=== PATIENT | male | born 1950 | race Caucasian/White ===

== ENCOUNTER 2017-05-02 08:38 | Day surgery (SDC) | payer MEDICARE, OTHER ==
[2017-05-02] MEDS ORDERED: Midazolam 1 MG/ML 2 ML SDV ONE (09:19)
[2017-05-02] MEDS ORDERED: fentaNYL 100 MCG/2 ML SDV ONE (09:19)
[2017-05-02] MEDS ORDERED: Propofol 200 MG/20 ML SDV ONE (09:19)
[2017-05-02] MEDS ORDERED: Lactated Ringers 1,000 ML IV SCH (09:45)
[2017-05-02 11:16] VITALS: BP 98/56
--- NOTE | 2017-05-02 14:59 | OR ---
DATE OF PROCEDURE: 05/02/2017 PREOPERATIVE DIAGNOSIS: Colon cancer screening. POSTOPERATIVE DIAGNOSIS: Diverticulosis. PROCEDURE: Colonoscopy to the cecum. ANESTHESIA: IV anesthesia with monitored anesthesia care. INDICATION: This is a 66-year-old white male is referred for a colonoscopy for colon cancer screening. He tells me his last colonoscopic exam was done 12 years ago. I counseled him for the procedure including risks and alternatives, and he gave his informed consent to proceed. DESCRIPTION OF PROCEDURE: The patient was placed in the left lateral decubitus position. IV anesthesia was administered by the Anesthesia Service. Time-out was held. A rectal exam was performed, which was unremarkable. The flexible video Olympus colonoscope was introduced through his anus, up his rectum, and out his colon all way to the cecum. En route, we saw several left-sided diverticula. There was no bleeding or inflammation associated with them. Once the cecum was reached, the scope was slowly withdrawn examining the mucosa throughout. No additional mucosal abnormalities were noted. The scope was retroflexed in the rectum with the distal rectum appearing unremarkable. The scope was straightened and removed. He tolerated the procedure well. Emil King MD /[id number]
== END 2017-05-02 11:34 | disposition home or self-care (01) ==
LOC: JP.SDS 08:38
PROVIDERS: ATTEND Surgery
DX: Z12.11 Encounter for screening for malignant neoplasm of colon (principal); K57.30 Diverticulosis of large intestine without perforation or abscess without bleeding; Z88.8 Allergy status to other drugs, medicaments and biological substances
CPT/HCPCS: G0121; J2250; J2704; J3010; J7120

== ENCOUNTER 2021-12-12 10:34 | Emergency (ER) | payer MEDICARE, OTHER ==
[2021-12-12 11:10] VITALS: BP 117/78; PULSE 75
[2021-12-12] MEDS ORDERED: Sodium Chloride 0.9% 10 ML Syringe FLUSH PRN (11:10)
[2021-12-12] MEDS ORDERED: Albuterol 8 GM Inhaler INH ONE (11:10)
[2021-12-12] MEDS ORDERED: predniSONE 20 MG Tab PO ONE (11:15)
== END 2021-12-12 14:57 | disposition home or self-care (01) ==
LOC: JP.ED 10:34
DX: U07.1 COVID-19 (principal); J44.1 Chronic obstructive pulmonary disease with (acute) exacerbation; Z88.8 Allergy status to other drugs, medicaments and biological substances; Z79.82 Long term (current) use of aspirin; Z87.891 Personal history of nicotine dependence
CPT/HCPCS: 36415; 71045; 71045-26; 80053; 85025; 99285-25

== ENCOUNTER 2022-08-19 10:22 | Inpatient (IN) | payer MEDICARE ==
[2022-08-19] MEDS ORDERED: Ketorolac 30 MG/ML SDV IM ONE (12:11)
[2022-08-19] MEDS ORDERED: Sodium Chloride 0.9% 10 ML Syringe FLUSH PRN ×2 (12:49→14:21)
[2022-08-19] MEDS ORDERED: Ampicillin/Sulbactam Na 1.5 GM in Sodium Chloride 0.9% 50 ML IV SCH (13:00)
[2022-08-19] MEDS ORDERED: HYDROmorphone 0.5 MG/0.5 ML Syringe IVPUSH PRN (14:21)
[2022-08-19] MEDS ORDERED: Ondansetron 4 MG/2 ML SDV IV PRN (14:21)
[2022-08-19] MEDS: Acetaminophen 325 MG Tab PO PRN (17:16)
[2022-08-19] MEDS: Enoxaparin 40 MG/0.4 ML Syringe SUBCUT SCH (17:17)
[2022-08-19] MEDS: Ampicillin/Sulbactam Na 1.5 GM in Sodium Chloride 0.9% 50 ML IV SCH ×2 (17:18→23:31)
[2022-08-19] MEDS: oxyCODONE 5 MG Tab PO PRN (20:28)
[2022-08-19] MEDS: Sodium Chloride 0.9% 1,000 ML IV SCH (22:14)
[2022-08-20] MEDS: Acetaminophen 325 MG Tab PO PRN (04:38)
[2022-08-20] MEDS: Sodium Chloride 0.9% 1,000 ML IV SCH (05:55)
[2022-08-20] MEDS: Ampicillin/Sulbactam Na 1.5 GM in Sodium Chloride 0.9% 50 ML IV SCH ×3 (05:55→17:16)
[2022-08-20] MEDS ORDERED: Niacin 250 MG Tab.ER PO SCH ×2 (09:00→21:00)
[2022-08-20] MEDS ORDERED: Aspirin 81 MG Tab.Chew PO SCH ×2 (09:00→21:00)
[2022-08-20] MEDS ORDERED: Fish Oil/Omega-3 Fatty Acids 1 Gm Cap PO SCH (09:00)
[2022-08-20] MEDS: oxyCODONE 5 MG Tab PO PRN ×2 (09:33→16:20)
[2022-08-20] MEDS ORDERED: Sodium Chloride 0.9% 1,000 ML IV SCH (10:15)
[2022-08-20] MEDS: Docusate Sodium 100 MG Cap PO SCH ×2 (12:37→21:13)
[2022-08-20] MEDS: Enoxaparin 40 MG/0.4 ML Syringe SUBCUT SCH (16:20)
[2022-08-21] MEDS: Ampicillin/Sulbactam Na 1.5 GM in Sodium Chloride 0.9% 50 ML IV SCH (00:08)
[2022-08-21 00:10] VITALS: BP 111/81; PULSE 75
[2022-08-21] MEDS ORDERED: Ampicillin/Sulbactam Na 1.5 GM in Sodium Chloride 0.9% 50 ML IV ONE ×2 (06:00→11:30)
[2022-08-21] MEDS ORDERED: Sodium Chloride 0.9% 1,000 ML IV ONE (07:25)
[2022-08-21] MEDS ORDERED: Bupivacaine 0.5% 50 ML MDV ONE (07:59)
[2022-08-21] MEDS ORDERED: Lidocaine 1% with EPINEPHrine 1:100,000 50 ML MDV ONE (07:59)
[2022-08-21] MEDS ORDERED: hydrOXYzine HCL 100 MG/2 ML SDV IM ONE (08:15)
[2022-08-21] MEDS ORDERED: Dexamethasone 4 MG/ML SDV ONE (08:47)
[2022-08-21] MEDS ORDERED: Propofol 200 MG/20 ML SDV ONE (08:47)
[2022-08-21] MEDS ORDERED: Rocuronium 50 MG/5 ML Vial ONE (08:47)
[2022-08-21] MEDS ORDERED: Ondansetron 4 MG/2 ML SDV ONE (08:47)
[2022-08-21] MEDS ORDERED: Glycopyrrolate 0.2 MG/ML 5 ML MDV ONE (08:47)
[2022-08-21] MEDS ORDERED: Succinylcholine 200 MG/10 ML MDV ONE (08:47)
[2022-08-21] MEDS ORDERED: Neostigmine Methylsulfate 1 MG/ML 5 ML Syringe ONE (08:47)
[2022-08-21] MEDS ORDERED: fentaNYL 100 MCG/2 ML SDV ONE ×2 (08:49)
[2022-08-21] MEDS ORDERED: Pantoprazole 40 MG Vial ONE (09:00)
[2022-08-21] MEDS ORDERED: HYDROmorphone/Normal Saline 6 MG/30 ML PCA Vial ONE ×2 (09:00→10:30)
[2022-08-21] MEDS ORDERED: hydrOXYzine HCL 100 MG/2 ML SDV ONE ×2 (09:00→13:20)
[2022-08-21] MEDS ORDERED: Lidocaine 1% 4 ML ONE (09:50)
[2022-08-21] MEDS ORDERED: Lidocaine 2% Jelly 10 ML Urojet ONE (09:53)
[2022-08-21] MEDS ORDERED: fentaNYL 250 MCG/5 ML SDV ONE (10:25)
[2022-08-21] MEDS ORDERED: Labetalol 20 MG/4 ML Syringe ONE (10:38)
[2022-08-21] MEDS ORDERED: Meropenem 500 MG SDV ONE ×2 (10:39→10:54)
[2022-08-21] MEDS ORDERED: Ketamine 20 MG in Sodium Chloride 0.9% 19.8 ML IV SCH (11:00)
[2022-08-21] MEDS ORDERED: Ropivacaine 38 ML, dexAMETHasone 8 MG, EPINEPHrine 0.4 MG, Sodium Chloride 0.9% 39.6 ML NERVRT SCH ×4 (11:00)
[2022-08-21] MEDS ORDERED: Ketamine 500 MG/5 ML MDV IV SCH (11:00)
[2022-08-21] MEDS ORDERED: Lactated Ringers 1,000 ML ONE (11:09)
[2022-08-21] MEDS ORDERED: Sugammadex Sodium 200 MG/2 ML VIAL ONE (11:50)
[2022-08-21] MEDS ORDERED: Dextrose 5%-Lactated Ringers 1,000 ML IV ONE (17:45)
[2022-08-21] MEDS ORDERED: Ampicillin/Sulbactam Na 3 GM in Sodium Chloride 0.9% 100 ML IV ONE (19:43)
[2022-08-22] MEDS ORDERED: Ondansetron 4 MG/2 ML SDV IVPUSH ONE ×3 (01:44→07:25)
[2022-08-22] MEDS ORDERED: oxyCODONE 5 MG Tab PO ONE (01:51)
[2022-08-22] MEDS ORDERED: Ampicillin/Sulbactam Na 3 GM in Sodium Chloride 0.9% 100 ML IV ONE ×4 (02:37→20:50)
[2022-08-22] MEDS ORDERED: Ampicillin/Sulbactam Na 1.5 GM in Sodium Chloride 0.9% 50 ML IV ONE ×3 (08:45→20:50)
[2022-08-22] MEDS ORDERED: Tamsulosin 0.4 MG Cap.ER ONE ×2 (09:00)
[2022-08-22] MEDS ORDERED: Cyclobenzaprine 10 MG Tab PO ONE ×2 (09:00→17:00)
[2022-08-22] MEDS ORDERED: Furosemide 20 MG/2 ML VIAL ONE (09:00)
[2022-08-22] MEDS ORDERED: Cyclobenzaprine 10 MG Tab ONE (09:12)
[2022-08-22] MEDS ORDERED: Azithromycin 125 MG in Sodium Chloride 0.9% 100 ML IV ONE ×2 (09:45→21:45)
[2022-08-22] MEDS ORDERED: Pantoprazole 40 MG Vial ONE (13:49)
[2022-08-22] MEDS ORDERED: Pantoprazole 40 MG Vial IV ONE (14:15)
[2022-08-22] MEDS ORDERED: Potassium Phos in 0.9 % NaCl 250 ML IV ONE ×4 (14:51→23:00)
[2022-08-22] MEDS ORDERED: HYDROmorphone/Normal Saline 6 MG/30 ML PCA Vial IV ONE (18:10)
[2022-08-22] MEDS ORDERED: hydrOXYzine HCL 100 MG/2 ML SDV IM ONE (20:40)
[2022-08-22] MEDS ORDERED: hydrOXYzine HCL 100 MG/2 ML SDV ONE (20:44)
[2022-08-22] MEDS ORDERED: Docusate Sodium 100 MG Cap ONE (21:16)
[2022-08-23] MEDS ORDERED: Cyclobenzaprine 10 MG Tab PO ONE (01:50)
[2022-08-23] MEDS ORDERED: Ampicillin/Sulbactam Na 1.5 GM in Sodium Chloride 0.9% 50 ML IV ONE (02:50)
[2022-08-23] MEDS ORDERED: Ampicillin/Sulbactam Na 3 GM in Sodium Chloride 0.9% 100 ML IV ONE ×4 (02:50→22:00)
[2022-08-23] MEDS ORDERED: Bupivacaine 0.5% 50 ML MDV ONE (06:44)
[2022-08-23] MEDS ORDERED: Meropenem 500 MG SDV ONE (06:44)
[2022-08-23] MEDS ORDERED: Lidocaine 1% with EPINEPHrine 1:100,000 50 ML MDV ONE (06:44)
[2022-08-23] MEDS ORDERED: Propofol 200 MG/20 ML SDV ONE (06:49)
[2022-08-23] MEDS ORDERED: Ropivacaine 38 ML, dexAMETHasone 8 MG, EPINEPHrine 0.4 MG, Sodium Chloride 0.9% 39.6 ML NERVRT SCH ×4 (07:00)
[2022-08-23] MEDS ORDERED: Furosemide 20 MG/2 ML VIAL ONE ×2 (07:12→09:00)
[2022-08-23] MEDS ORDERED: Sodium Chloride 0.9% 500 ML ONE (07:44)
[2022-08-23] MEDS ORDERED: Ketorolac 30 MG/ML SDV ONE (07:46)
[2022-08-23] MEDS ORDERED: HYDROmorphone/Normal Saline 6 MG/30 ML PCA Vial IV ONE (07:50)
[2022-08-23] MEDS ORDERED: Tamsulosin 0.4 MG Cap.ER ONE ×2 (09:00)
[2022-08-23] MEDS ORDERED: Pantoprazole 40 MG Vial ONE (09:00)
[2022-08-23] MEDS ORDERED: Azithromycin 125 MG in Sodium Chloride 0.9% 100 ML IV ONE (09:00)
[2022-08-23] MEDS ORDERED: Cyclobenzaprine 10 MG Tab ONE ×3 (09:00)
[2022-08-23] MEDS ORDERED: Ibuprofen 600 MG Tab ONE (09:00)
[2022-08-23] MEDS ORDERED: Potassium Phos in 0.9 % NaCl 250 ML IV ONE ×3 (11:45→17:45)
[2022-08-23] MEDS ORDERED: Magnesium Sulfate/Water 50 ML IV ONE ×2 (16:00→22:00)
[2022-08-24] MEDS ORDERED: Magnesium Sulfate/Water 50 ML IV ONE ×4 (04:00→22:00)
[2022-08-24] MEDS ORDERED: Ampicillin/Sulbactam Na 3 GM in Sodium Chloride 0.9% 100 ML IV ONE ×4 (04:00→22:00)
[2022-08-24] MEDS ORDERED: Ibuprofen 600 MG Tab ONE ×3 (09:00)
[2022-08-24] MEDS ORDERED: Tamsulosin 0.4 MG Cap.ER ONE ×2 (09:00)
[2022-08-24] MEDS ORDERED: Furosemide 20 MG/2 ML VIAL ONE (09:00)
[2022-08-24] MEDS ORDERED: Cyclobenzaprine 10 MG Tab ONE ×3 (09:00)
[2022-08-24] MEDS ORDERED: Pantoprazole 40 MG Vial ONE (09:00)
[2022-08-24] MEDS ORDERED: Potassium Phos in 0.9 % NaCl 250 ML IV ONE ×3 (09:18→15:46)
[2022-08-24] MEDS ORDERED: Dextrose 5%-Lactated Ringers 1,000 ML IV ONE (10:02)
[2022-08-24] MEDS ORDERED: Ropivacaine 38 ML, dexAMETHasone 8 MG, EPINEPHrine 0.4 MG, Sodium Chloride 0.9% 39.6 ML NERVRT SCH ×4 (11:00)
[2022-08-24] MEDS ORDERED: HYDROmorphone 2 MG Tab PO ONE ×2 (12:30→18:30)
[2022-08-24] MEDS ORDERED: HYDROmorphone 2 MG Tab ONE ×2 (12:44→18:39)
[2022-08-25] MEDS ORDERED: HYDROmorphone 2 MG Tab ONE (03:05)
[2022-08-25] MEDS ORDERED: HYDROmorphone 2 MG Tab PO ONE (03:07)
[2022-08-25] MEDS ORDERED: Ampicillin/Sulbactam Na 3 GM in Sodium Chloride 0.9% 100 ML IV ONE (04:23)
[2022-08-25] MEDS ORDERED: Magnesium Sulfate/Water 50 ML IV ONE (04:23)
[2022-08-25] MEDS ORDERED: Tamsulosin 0.4 MG Cap.ER ONE (09:00)
[2022-08-25] MEDS ORDERED: Ibuprofen 600 MG Tab ONE ×2 (09:00)
[2022-09-15 08:52] LABS: ESTIMATED GFR 90 mL/min (>60)
[2022-09-15 17:19] LABS: ESTIMATED GFR 79 mL/min (>60)
[2022-09-18 23:13] LABS: ESTIMATED GFR 79 mL/min (>60)
[2022-09-19 13:59] LABS: ESTIMATED GFR 79 mL/min (>60)
[2022-09-26 13:49] LABS: ESTIMATED GFR 93 mL/min (>60)
== END 2022-08-25 11:00 | disposition home or self-care (01) | DRG 329 ==
LOC: JP.ED 10:22 → JP.MS 12:50 → JP.ZCENSUS 08-21 11:57
PROVIDERS: ADMIT Hospitalist; ATTEND Surgery
PROC: 0DBP0ZZ Excision of Rectum, Open Approach (ICD-10-PCS; principal; 2022-08-21)
PROC: 0DBN0ZZ Excision of Sigmoid Colon, Open Approach (ICD-10-PCS; 2022-08-21)
PROC: 0W9G0ZZ Drainage of Peritoneal Cavity, Open Approach (ICD-10-PCS; 2022-08-21)
PROC: 0WQF0ZZ Repair Abdominal Wall, Open Approach (ICD-10-PCS; 2022-08-23)
DX: C18.7 Malignant neoplasm of sigmoid colon (principal); K65.1 Peritoneal abscess; K57.20 Diverticulitis of large intestine with perforation and abscess without bleeding; K42.0 Umbilical hernia with obstruction, without gangrene; H54.7 Unspecified visual loss; J44.9 Chronic obstructive pulmonary disease, unspecified; N40.0 Benign prostatic hyperplasia without lower urinary tract symptoms; Z20.822 Contact with and (suspected) exposure to COVID-19; M54.9 Dorsalgia, unspecified; G89.29 Other chronic pain; Z86.16 Personal history of COVID-19; Z88.8 Allergy status to other drugs, medicaments and biological substances; Z79.82 Long term (current) use of aspirin; Z87.891 Personal history of nicotine dependence; Z90.49 Acquired absence of other specified parts of digestive tract; Z79.899 Other long term (current) drug therapy
CPT/HCPCS: 36415; 51702; 74176; 80048; 80053; 82378; 83735; 83880; 84100; 84145; 84484; 85025; 85027; 86140; 87070; 87075; 87077; 87186; 87205; 88302; 88307; 88309; 88341; 94762; 99284; A9270-GY; C9113; J0131; J0171; J0295; J0330; J0456; J1100; J1170; J1650; J1885; J1940; J2185; J2405; J2704; J2710; J2795; J3010; J3410; J3475; J3490; J7030; J7040; J7120; J7121; U0002

== ENCOUNTER 2022-10-09 07:36 | Day surgery (SDC) | payer MEDICARE ==
[~2022-10-09 07:36] MED LIST: Bupivacaine 0.5% 50 ML MDV ONE; Lidocaine 1% with EPINEPHrine 1:100,000 50 ML MDV ONE; Midazolam 1 MG/ML 2 ML SDV ONE; Propofol 200 MG/20 ML SDV ONE; fentaNYL 100 MCG/2 ML SDV ONE
[2022-10-09] MEDS ORDERED: Dextrose 5%-Lactated Ringers 1,000 ML IV SCH (09:00)
[2022-10-09] MEDS ORDERED: ceFAZolin 2 GM in Sodium Chloride 0.9% 50 ML IV ONE (09:15)
[2022-10-09] MEDS ORDERED: ceFAZolin 2 GM in Premix Bag 1 BAG IV ONE (09:15)
[2022-10-09] MEDS ORDERED: Propofol 200 MG/20 ML SDV ONE (09:18)
[2022-10-09 11:13] VITALS: BP 125/68; PULSE 52
== END 2022-10-09 11:15 | disposition home or self-care (01) ==
LOC: JP.SDS 07:36
PROVIDERS: ATTEND Surgery
DX: Z45.2 Encounter for adjustment and management of vascular access device (principal); E78.5 Hyperlipidemia, unspecified; J44.9 Chronic obstructive pulmonary disease, unspecified; Z79.899 Other long term (current) drug therapy; Z88.8 Allergy status to other drugs, medicaments and biological substances
CPT/HCPCS: 36561; 77001; C1788; J0690; J1642; J2250; J2704; J3010; J3490; J7121

== ENCOUNTER 2023-03-16 06:50 | Day surgery (SDC) | payer MEDICARE ==
[2023-03-16] MEDS ORDERED: Propofol 200 MG/20 ML SDV ONE (07:28)
[2023-03-16] MEDS ORDERED: Midazolam 1 MG/ML 2 ML SDV ONE (07:28)
[2023-03-16] MEDS ORDERED: fentaNYL 50 MCG/ML SDV ONE (07:28)
[2023-03-16] MEDS ORDERED: Dextrose 5%-Lactated Ringers 1,000 ML IV SCH (07:30)
[2023-03-16 10:09] VITALS: BP 131/89; PULSE 59
== END 2023-03-16 10:55 | disposition home or self-care (01) ==
LOC: JP.SDS 06:50
PROVIDERS: ATTEND Surgery
DX: K91.89 Other postprocedural complications and disorders of digestive system (principal); K56.699 Other intestinal obstruction unspecified as to partial versus complete obstruction; K57.20 Diverticulitis of large intestine with perforation and abscess without bleeding; K64.9 Unspecified hemorrhoids; Z98.0 Intestinal bypass and anastomosis status; Z85.038 Personal history of other malignant neoplasm of large intestine; Z90.49 Acquired absence of other specified parts of digestive tract; Z53.09 Procedure and treatment not carried out because of other contraindication
CPT/HCPCS: 45386; J1642; J2250; J2704; J3010; J7121

== ENCOUNTER 2023-05-20 18:17 | Inpatient (IN) | payer MEDICARE ==
[2023-05-20] MEDS ORDERED: Ondansetron 4 MG/2 ML SDV IVPUSH ONE (18:35)
[2023-05-20] MEDS ORDERED: HYDROmorphone 0.5 MG/0.5 ML Syringe IVPUSH ONE ×2 (18:35→19:10)
[2023-05-20 18:51] LABS: BASOPHILS ABSOLUTE AUTO 0.04 K/uL (0.00-0.10); BASOPHILS PERCENT AUTO 0.4 % (0.1-1.3); EOSINOPHILS ABSOLUTE AUTO 0.92 K/uL (0.00-0.40); EOSINOPHILS PERCENT AUTO 9.3 % (0.0-5.4); HEMATOCRIT 38.5 % (38.4-49.7); HEMOGLOBIN 13.5 g/dL (12.9-16.9); IMMATURE GRAN PERCENT AUTO 0.2 % (0.0-0.7); LYMPHOCYTES ABSOLUTE AUTO 2.45 K/uL (0.8-3.3); LYMPHOCYTES PERCENT AUTO 24.8 % (11.4-47.7); MEAN CORPUSCULAR HEMOGLOBIN 34.9 pg (31.6-35.5); MEAN CORPUSCULAR HGB CONC 35.1 g/dL (31.6-35.5); MEAN CORPUSCULAR VOLUME 99.5 fL (81.4-99.0); MONOCYTES ABSOLUTE AUTO 0.81 K/uL (0.20-0.90); MONOCYTES PERCENT AUTO 8.2 % (3.3-12.6); NEUTROPHILS ABSOLUTE AUTO 5.63 K/uL (1.0-7.6); NEUTROPHILS PERCENT AUTO 57.1 % (40.0-78.1); PLATELET COUNT,PLT 211 K/uL (130-375); RED BLOOD CELL COUNT 3.87 M/uL (4.14-5.76); WHITE BLOOD CELL COUNT,WBC 9.9 K/uL (3.2-11.0)
[2023-05-20] MEDS ORDERED: Sodium Chloride 0.9% 50 ML IV ONE (18:52)
[2023-05-20] MEDS ORDERED: Sodium Chloride 0.9% 10 ML Syringe FLUSH ONE (18:52)
[2023-05-20 18:56] LABS: IMMATURE GRAN ABSOLUTE AUTO 0.02 K/uL (0.00-0.23)
[2023-05-20] MEDS ORDERED: Iopamidol 612 MG/ML 100 ML Bottle IV SCH (19:00)
[2023-05-20] MEDS ORDERED: Sodium Chloride 0.9% 1,000 ML IV SCH ×2 (19:00→20:15)
[2023-05-20 19:12] LABS: A/G RATIO 0.9 (1.2-2.2); ALANINE AMINOTRANSFERASE,ALT 31 U/L (12-78); ALBUMIN 3.4 g/dL (3.4-5.0); ALKALINE PHOSPHATASE 103 U/L (46-116); ASPARTATE AMNIOTRANSFERASE,AST 32 U/L (15-37); BILIRUBIN TOTAL 0.8 mg/dL (0.2-1.0); BLOOD UREA NITROGEN,BUN 21 mg/dL (7-18); CALCIUM 8.7 mg/dL (8.5-10.1); CARBON DIOXIDE,CO2 24 mmol/L (21-32); CHLORIDE,CL 101 mmol/L (100-108); CREATININE 0.9 mg/dL (0.8-1.3); EST CRCL DRUG DOSING (CG) 69.67 mL/min; ESTIMATED GFR 90 mL/min (>60); GLUCOSE RANDOM 130 mg/dL (74-106); POTASSIUM,K 3.7 mmol/L (3.6-5.2); SODIUM,NA 134 mmol/L (140-148)
[2023-05-20 19:13] LABS: ANION GAP 12.7 mmol/L (5.0-14.0); C-REACTIVE PROTEIN < 0.05 mg/dL (0.0-0.3)
[2023-05-20 19:17] LABS: LACTIC ACID 2.7 mmol/L (0.4-2.0)
[2023-05-20] MEDS ORDERED: cefTRIAXone 2 GM in Sodium Chloride 0.9% 50 ML IV ONE (21:31)
[2023-05-20] MEDS ORDERED: metroNIDAZOLE/Normal Saline 500 MG in Premix Bag 1 BAG IV ONE (21:31)
[2023-05-20 21:41] LABS: INR 1.2; PROTHROMBIN TIME 11.6 sec (9.2-10.6)
[2023-05-20] MEDS ORDERED: metroNIDAZOLE/Normal Saline 100 ML ONE (22:19)
[2023-05-20] MEDS ORDERED: Bupivacaine 0.5%/EPINEPHrine 1:200,000 50 ML MDV ONE (22:25)
[2023-05-20] MEDS ORDERED: fentaNYL 250 MCG/5 ML SDV ONE (22:34)
[2023-05-20] MEDS ORDERED: Glycopyrrolate 0.2 MG/ML 5 ML MDV ONE (22:35)
[2023-05-20] MEDS ORDERED: Rocuronium 50 MG/5 ML Vial ONE ×2 (22:35→23:56)
[2023-05-20] MEDS ORDERED: Dexamethasone 4 MG/ML SDV ONE (22:35)
[2023-05-20] MEDS ORDERED: Propofol 200 MG/20 ML SDV ONE (22:35)
[2023-05-20] MEDS ORDERED: Succinylcholine 200 MG/10 ML MDV ONE (22:35)
[2023-05-20] MEDS ORDERED: Ondansetron 4 MG/2 ML SDV ONE (22:35)
[2023-05-20] MEDS ORDERED: Neostigmine Methylsulfate 1 MG/ML 5 ML Syringe ONE (22:35)
[2023-05-20] MEDS ORDERED: Lactated Ringers 1,000 ML IV ONE (22:43)
[2023-05-20] MEDS ORDERED: Lidocaine 2% Jelly 10 ML Urojet ONE (23:16)
[2023-05-21] MEDS ORDERED: fentaNYL 100 MCG/2 ML SDV ONE (00:46)
[2023-05-21] MEDS ORDERED: Ondansetron 4 MG/2 ML SDV IVPUSH PRN (01:05)
[2023-05-21] MEDS ORDERED: Lactated Ringers 1,000 ML IV SCH (01:15)
[2023-05-21] MEDS ORDERED: Naloxone 0.4 MG/ML SDV IVPUSH PRN (01:57)
[2023-05-21] MEDS ORDERED: HYDROmorphone/Normal Saline 6 MG/30 ML PCA Vial IV PRN (01:57)
[2023-05-21] MEDS: Acetaminophen 1,000 MG in Premix Bag 1 BAG IV SCH ×4 (02:12→19:55)
[2023-05-21 06:10] LABS: HEMATOCRIT 35.4 % (38.4-49.7); HEMOGLOBIN 12.2 g/dL (12.9-16.9); MEAN CORPUSCULAR HEMOGLOBIN 34.6 pg (31.6-35.5); MEAN CORPUSCULAR HGB CONC 34.5 g/dL (31.6-35.5); MEAN CORPUSCULAR VOLUME 100.3 fL (81.4-99.0); RED BLOOD CELL COUNT 3.53 M/uL (4.14-5.76); WHITE BLOOD CELL COUNT,WBC 12.2 K/uL (3.2-11.0)
[2023-05-21 06:25] LABS: CALCIUM 7.8 mg/dL (8.5-10.1); CREATININE 0.9 mg/dL (0.8-1.3); EST CRCL DRUG DOSING (CG) 69.67 mL/min; MAGNESIUM 1.8 mg/dL (1.8-2.4); PHOSPHORUS 3.9 mg/dL (2.5-4.9); POTASSIUM,K 4.5 mmol/L (3.6-5.2)
[2023-05-21 06:27] LABS: ANION GAP 11.5 mmol/L (5.0-14.0)
[2023-05-21] MEDS: Dextrose 5%-0.9% NaCl 1,000 ML IV SCH ×2 (10:01→18:29)
[2023-05-21] MEDS: Phenol/Sodium Phenolate Spray 180 ML Bottle MUCMEM PRN ×2 (14:10→16:17)
[2023-05-21 14:19] LABS: APPEARANCE,URINE CLEAR (CLEAR); BILIRUBIN,URINE NEGATIVE (NEGATIVE); COLOR,URINE YELLOW (YELLOW); GLUCOSE,URINE NEGATIVE (NEGATIVE); KETONES,URINE NEGATIVE (NEGATIVE); LEUKOCYTE ESTERASE,URINE NEGATIVE (NEGATIVE); NITRITE,URINE NEGATIVE (NEGATIVE); OCCULT BLOOD,URINE NEGATIVE (NEGATIVE); PROTEIN,URINE NEGATIVE (NEGATIVE); UROBILINOGEN,URINE 0.2 EU/dL (0.2-1.0)
[2023-05-21 14:21] LABS: RBC,URINE 0-5 (0-5)
[2023-05-21 14:22] LABS: AMORPHOUS SEDIMENT,URINE NOT SEEN; BACTERIA,URINE NOT SEEN; EPITHELIAL CELLS,URINE RARE; MUCUS,URINE FEW; WBC,URINE 0-5 (0-5)
[2023-05-21] MEDS: Enoxaparin 40 MG/0.4 ML Syringe SUBCUT SCH (17:46)
[2023-05-22] MEDS: Dextrose 5%-0.9% NaCl 1,000 ML IV SCH ×2 (02:30→19:58)
[2023-05-22] MEDS: Acetaminophen 1,000 MG in Premix Bag 1 BAG IV SCH (02:53)
[2023-05-22 04:39] LABS: HEMOGLOBIN 11.3 g/dL (12.9-16.9); MEAN CORPUSCULAR HEMOGLOBIN 35.2 pg (31.6-35.5); MEAN CORPUSCULAR HGB CONC 34.2 g/dL (31.6-35.5); MEAN CORPUSCULAR VOLUME 102.8 fL (81.4-99.0); RED BLOOD CELL COUNT 3.21 M/uL (4.14-5.76); WHITE BLOOD CELL COUNT,WBC 7.3 K/uL (3.2-11.0)
[2023-05-22 05:01] LABS: CALCIUM 7.4 mg/dL (8.5-10.1); CREATININE 0.9 mg/dL (0.8-1.3); EST CRCL DRUG DOSING (CG) 69.67 mL/min; MAGNESIUM 1.9 mg/dL (1.8-2.4); PHOSPHORUS 2.4 mg/dL (2.5-4.9); POTASSIUM,K 3.8 mmol/L (3.6-5.2)
[2023-05-22 05:02] LABS: ANION GAP 7.8 mmol/L (5.0-14.0)
[2023-05-22] MEDS: Potassium Phos in 0.9 % NaCl 15 MMOL in Premix Bag 1 BAG IV SCH ×8 (10:20→19:54)
[2023-05-22] MEDS: Enoxaparin 40 MG/0.4 ML Syringe SUBCUT SCH (17:13)
[2023-05-22] MEDS ORDERED: Dextrose 5%-Lactated Ringers 1,000 ML IV SCH (22:00)
[2023-05-23 05:09] LABS: HEMOGLOBIN 12.4 g/dL (12.9-16.9); MEAN CORPUSCULAR HEMOGLOBIN 35.1 pg (31.6-35.5); MEAN CORPUSCULAR HGB CONC 34.4 g/dL (31.6-35.5); RED BLOOD CELL COUNT 3.53 M/uL (4.14-5.76); WHITE BLOOD CELL COUNT,WBC 7.3 K/uL (3.2-11.0)
[2023-05-23 05:28] LABS: A/G RATIO 0.8 (1.2-2.2); ALANINE AMINOTRANSFERASE,ALT 25 U/L (12-78); ALBUMIN 2.6 g/dL (3.4-5.0); ALKALINE PHOSPHATASE 78 U/L (46-116); ASPARTATE AMNIOTRANSFERASE,AST 28 U/L (15-37); BILIRUBIN TOTAL 0.6 mg/dL (0.2-1.0); BLOOD UREA NITROGEN,BUN 10 mg/dL (7-18); CARBON DIOXIDE,CO2 26 mmol/L (21-32); CHLORIDE,CL 103 mmol/L (100-108); CREATININE 0.8 mg/dL (0.8-1.3); EST CRCL DRUG DOSING (CG) 78.38 mL/min; ESTIMATED GFR 93 mL/min (>60); GLUCOSE RANDOM 108 mg/dL (74-106); MAGNESIUM 1.8 mg/dL (1.8-2.4); PHOSPHORUS 3.6 mg/dL (2.5-4.9); POTASSIUM,K 3.8 mmol/L (3.6-5.2); SODIUM,NA 138 mmol/L (140-148)
[2023-05-23 05:30] LABS: ANION GAP 12.8 mmol/L (5.0-14.0)
[2023-05-23] MEDS ORDERED: Acetaminophen 325 MG Tab PO SCH (08:15)
[2023-05-23] MEDS: oxyCODONE 5 MG Tab PO PRN (08:18)
[2023-05-23] MEDS: Acetaminophen 500 MG Tab PO SCH ×2 (10:10→17:12)
[2023-05-23] MEDS: Enoxaparin 40 MG/0.4 ML Syringe SUBCUT SCH ×2 (17:12→17:16)
[2023-05-24] MEDS: Acetaminophen 500 MG Tab PO SCH ×3 (02:24→19:17)
[2023-05-24 04:57] LABS: HEMATOCRIT 35.1 % (38.4-49.7); HEMOGLOBIN 12.3 g/dL (12.9-16.9); MEAN CORPUSCULAR HEMOGLOBIN 35.4 pg (31.6-35.5); MEAN CORPUSCULAR VOLUME 101.2 fL (81.4-99.0); RED BLOOD CELL COUNT 3.47 M/uL (4.14-5.76); WHITE BLOOD CELL COUNT,WBC 6.6 K/uL (3.2-11.0)
[2023-05-24 05:17] LABS: CALCIUM 8.1 mg/dL (8.5-10.1); CREATININE 0.9 mg/dL (0.8-1.3); EST CRCL DRUG DOSING (CG) 69.67 mL/min; MAGNESIUM 1.7 mg/dL (1.8-2.4); PHOSPHORUS 3.9 mg/dL (2.5-4.9); POTASSIUM,K 3.9 mmol/L (3.6-5.2)
[2023-05-24 05:18] LABS: ANION GAP 10.9 mmol/L (5.0-14.0)
[2023-05-24] MEDS ORDERED: Bisacodyl 10 MG Supp RECTAL PRN (07:59)
[2023-05-24] MEDS ORDERED: Magnesium Sulfate/Water 2 GM in Premix Bag 1 BAG IV ONE (08:30)
[2023-05-24] MEDS: Sennosides/Docusate Sodium 50-8.6 MG Tab PO SCH ×2 (14:35→20:07)
[2023-05-24] MEDS: oxyCODONE 5 MG Tab PO PRN (14:45)
[2023-05-24] MEDS: Enoxaparin 40 MG/0.4 ML Syringe SUBCUT SCH (19:17)
[2023-05-25] MEDS: Acetaminophen 500 MG Tab PO SCH ×2 (04:33→09:37)
[2023-05-25 05:32] LABS: HEMATOCRIT 36.5 % (38.4-49.7); HEMOGLOBIN 12.6 g/dL (12.9-16.9); MEAN CORPUSCULAR HEMOGLOBIN 34.5 pg (31.6-35.5); MEAN CORPUSCULAR HGB CONC 34.5 g/dL (31.6-35.5); RED BLOOD CELL COUNT 3.65 M/uL (4.14-5.76); WHITE BLOOD CELL COUNT,WBC 8.1 K/uL (3.2-11.0)
[2023-05-25 05:52] LABS: CALCIUM 8.4 mg/dL (8.5-10.1); CREATININE 0.9 mg/dL (0.8-1.3); EST CRCL DRUG DOSING (CG) 69.92 mL/min; MAGNESIUM 1.9 mg/dL (1.8-2.4); PHOSPHORUS 3.7 mg/dL (2.5-4.9); POTASSIUM,K 3.9 mmol/L (3.6-5.2)
[2023-05-25 05:55] LABS: ANION GAP 10.9 mmol/L (5.0-14.0)
[2023-05-25] MEDS: Sennosides/Docusate Sodium 50-8.6 MG Tab PO SCH (09:38)
[2023-05-25 12:55] VITALS: BP 132/86; PULSE 69
== END 2023-05-25 10:30 | disposition home or self-care (01) | DRG 330 ==
LOC: JP.ED 18:17 → JP.SDS 22:09 → JP.ICU 05-21 01:05 → UNDOADMIN 05-21 01:42 → JP.ICU 05-21 01:42
PROVIDERS: ADMIT Student in an Organized Health Care Education/Training Program; ATTEND Student in an Organized Health Care Education/Training Program
PROC: 0DNN0ZZ Release Sigmoid Colon, Open Approach (ICD-10-PCS; principal; 2023-05-20)
PROC: 0DN80ZZ Release Small Intestine, Open Approach (ICD-10-PCS; 2023-05-20)
PROC: 0D9670Z Drainage of Stomach with Drainage Device, Via Natural or Artificial Opening (ICD-10-PCS; 2023-05-20)
PROC: 0DQ80ZZ Repair Small Intestine, Open Approach (ICD-10-PCS; 2023-05-20)
DX: K56.699 Other intestinal obstruction unspecified as to partial versus complete obstruction (principal); K56.50 Intestinal adhesions [bands], unspecified as to partial versus complete obstruction; K91.71 Accidental puncture and laceration of a digestive system organ or structure during a digestive system procedure; J44.9 Chronic obstructive pulmonary disease, unspecified; I44.1 Atrioventricular block, second degree; I44.4 Left anterior fascicular block; E83.39 Other disorders of phosphorus metabolism; E83.42 Hypomagnesemia; Y83.8 Other surgical procedures as the cause of abnormal reaction of the patient, or of later complication, without mention of misadventure at the time of the procedure; Z88.8 Allergy status to other drugs, medicaments and biological substances; Z79.82 Long term (current) use of aspirin; Z86.16 Personal history of COVID-19; Z90.49 Acquired absence of other specified parts of digestive tract; Z98.890 Other specified postprocedural states; Z79.899 Other long term (current) drug therapy; Z87.891 Personal history of nicotine dependence; Z85.038 Personal history of other malignant neoplasm of large intestine
CPT/HCPCS: 36415; 74177; 80048; 80053; 81001; 82271; 83605; 83735; 84100; 84145; 85025; 85027; 85610; 86140; 87040; 93005; 93010; 96361; 96365; 96367; 96375; 96376; 99284; 99285-25; A9270-GY; J0131; J0330; J0696; J1100; J1170; J1650; J2405; J2704; J2710; J3010; J3475; J3490; J7030; J7120; J7121; Q9967

== ENCOUNTER 2024-05-27 08:10 | Day surgery (SDC) | payer MEDICARE ==
[2024-05-27] MEDS ORDERED: fentaNYL 100 MCG/2 ML SDV ONE (09:06)
[2024-05-27] MEDS ORDERED: Propofol 200 MG/20 ML SDV ONE ×2 (09:06→09:45)
[2024-05-27] MEDS: ceFAZolin 2 GM in Premix Bag 1 BAG IV ONE (09:20)
[2024-05-27] MEDS: Bupivacaine 0.5% 50 ML MDV ONE (09:40)
[2024-05-27] MEDS: Lidocaine 1% with EPINEPHrine 1:100,000 50 ML MDV ONE (09:40)
[2024-05-27 11:06] VITALS: BP 125/62; PULSE 46
[2024-05-27] MEDS: Sodium Chloride 0.9% 1,000 ML IV SCH (11:07)
== END 2024-05-27 11:20 | disposition home or self-care (01) ==
LOC: JP.SDS 08:10 → EDSTATUS 16:00
PROVIDERS: ATTEND Surgery
DX: Z49.01 Encounter for fitting and adjustment of extracorporeal dialysis catheter (principal); L72.0 Epidermal cyst; J44.9 Chronic obstructive pulmonary disease, unspecified; E78.5 Hyperlipidemia, unspecified
CPT/HCPCS: 00300; 11401; 36590; 88305; J0665; J0690; J2704; J3010; J7030